=== PATIENT | female | born 1940 ===

== ENCOUNTER 2021-03-07 07:19 | Outpatient (CLI) | payer OTHER | END 2021-03-07 07:21 | disposition home or self-care (01) | LOC: NUCLEAR 07:19 | PROVIDERS: ATTEND Internal Medicine Cardiovascular Disease | DX: I25.10 Atherosclerotic heart disease of native coronary artery without angina pectoris (principal); I25.9 Chronic ischemic heart disease, unspecified | CPT/HCPCS: 78452; 93017; A9500 ==